=== PATIENT | female | born 1950 | race Caucasian/White ===

== ENCOUNTER 2016-12-25 18:15 | Inpatient (IN) | payer OTHER ==
[~2016-12-25] VITALS: Ht 154.9 cm; Wt 63.5 kg
[2016-12-25 18:47] LABS: KETONES,URINE Negative (NEGATIVE); LEUKOCYTE ESTERASE ,URINE Trace (NEGATIVE); PH,URINE 5.5 (5.0-8.0)
[2016-12-25 18:49] LABS: BASOPHILS # (AUTO) 0.1 /CMM (0.0-0.2); BASOPHILS % (AUTO) 0.7 % (0.0-2.0); DIFF TOTAL % 100 %; EOSINOPHILS % (AUTO) 0.1 % (0.0-6.0); HEMATOCRIT 46 % (33-45); HEMOGLOBIN 15.4 g/dL (11.5-14.8); LYMPHOCYTES # (AUTO) 2.5 /CMM (0.8-4.8); MEAN CORPUSCULAR HEMOGLOBIN 32 PG (26.0-33.0); MEAN CORPUSCULAR HGB CONC 34 g/dl (31.0-36.0); MEAN CORPUSCULAR VOLUME 95 fL (82-100); MONOCYTES # (AUTO) 0.4 /CMM (0.1-1.30); NEUTROPHILS # (AUTO) 5.1 /CMM (1.8-8.9); NEUTROPHILS % (AUTO) 63.2 % (43.0-81.0); PLATELET COUNT (AUTO) 326 /CMM (150-450); RED BLOOD CELL COUNT(AUTO) 4.82 MIL/uL (4.0-5.2); WHITE BLOOD COUNT (AUTO) 8.1 K/uL (4.3-11.0)
[2016-12-25 18:54] LABS: ADD UA MICROSCOPIC YES
[2016-12-25 18:56] LABS: ADD URINE CULTURE YES
[2016-12-25 18:58] LABS: ANION GAP 14 (5-14); CALCIUM, SERUM 9.3 mg/dL (8.5-10.1); CARBON DIOXIDE 27 mmol/L (21-32); CHLORIDE 106 mmol/L (98-107); CREATININE 1.2 mg/dL (0.6-1.3); GFR 45 mL/min (>60); GLUCOSE 119 mg/dL (74-106); POTASSIUM 3.5 mmol/L (3.5-5.1); SODIUM SERUM 143 mmol/L (136-145); UREA NITROGEN, BLOOD 11 mg/dL (7-18)
[2016-12-25 18:58] LABS: CANNABINOID, URINE NEGATIVE (NEGATIVE); PHENCYCLIDINE SCREEN,URINE NEGATIVE (NEGATIVE)
[2016-12-25] MEDS ORDERED: CEPHALEXIN MONOHYDRATE 500 MG CAPSULE PO ONE ×2 (19:00→19:01)
[2016-12-25 19:04] LABS: ALANINE AMINOTRANSFERASE 20 U/L (12-78); ALBUMIN 4.1 g/dL (3.4-5.0); ASPARTATE AMINOTRANSFERASE 19 U/L (15-37); BILIRUBIN,DIRECT 0.1 mg/dL (0.0-0.2); BILIRUBIN,TOTAL 0.4 mg/dL (0.2-1.0); INDIRECT BILIRUBIN 0.3 mg/dL (0.0-1.1); TOTAL PROTEIN, SERUM 8.6 g/dL (6.4-8.2)
[2016-12-25 19:05] LABS: ACETAMINOPHEN 0 ug/ml (10-30); SALICYLATE 1.3 mg/dL (2.8-20.0)
[2016-12-25 20:24] VITALS: BP 157/88
[2016-12-25] MEDS ORDERED: ACETAMINOPHEN 325 MG TABLET PO PRN (21:00)
[2016-12-25] MEDS ORDERED: TEMAZEPAM 7.5 MG CAPSULE PO PRN (21:00)
[2016-12-25] MEDS ORDERED: MAG HYDROX/AL HYDROX/SIMETH 30 ML UDC PO PRN (21:00)
[2016-12-25] MEDS ORDERED: VERA240C2 PO (23:14)
[2016-12-25] MEDS ORDERED: BUSP15TA3 PO (23:14)
[2016-12-25] MEDS ORDERED: METO25TA6 PO (23:14)
[2016-12-25] MEDS ORDERED: ASPI81TA2 PO (23:24)
[2016-12-25] MEDS ORDERED: ACET1TAB12 PO (23:24)
[2016-12-25] MEDS ORDERED: BUTA1CAP47 PO (23:24)
[2016-12-25] MEDS ORDERED: SUMA100T16 PO (23:24)
[2016-12-25] MEDS ORDERED: IBUP-1481 PO (23:24)
[2016-12-25] MEDS ORDERED: DIPH25CA58 PO (23:24)
[2016-12-26 08:00] VITALS: BP 174/96
[2016-12-26] MEDS ORDERED: Z GUARD REMEDY 2 OZ OINT TP PRN (14:00)
[2016-12-26 16:00] VITALS: BP 162/79
[2016-12-26] MEDS: VENLAFAXINE XR 75 MG CAP.SR.24H PO SCH (16:09)
[2016-12-26] MEDS ORDERED: IBUPROFEN 400 MG TABLET PO PRN (16:30)
[2016-12-26] MEDS ORDERED: hydrALAZINE HCL 25 MG TABLET PO SCH (16:30)
[2016-12-26] MEDS ORDERED: diphenhydrAMINE HCL 25 MG CAPSULE PO PRN (16:30)
[2016-12-26] MEDS ORDERED: ACETAMINOPHEN 325 MG TABLET PO PRN (17:00)
[2016-12-26] MEDS: busPIRone 5 MG TABLET PO SCH (17:04)
[2016-12-26] MEDS: METOPROLOL TARTRATE 25 MG TABLET PO SCH (17:05)
[2016-12-26 19:51] VITALS: BP 146/68
[2016-12-26] MEDS ORDERED: QUETIAPINE FUMARATE 25 MG TABLET PO SCH (22:00)
[2016-12-27 08:00] VITALS: BP 133/72
[2016-12-27] MEDS: busPIRone 5 MG TABLET PO SCH ×3 (08:18→16:42)
[2016-12-27] MEDS: VENLAFAXINE XR 75 MG CAP.SR.24H PO SCH (08:18)
[2016-12-27] MEDS: ASPIRIN 81 MG TAB.CHEW PO SCH (08:19)
[2016-12-27] MEDS: VERAPAMIL HCL 120 MG TABLET PO SCH (08:19)
[2016-12-27] MEDS: METOPROLOL TARTRATE 25 MG TABLET PO SCH ×2 (08:19→16:42)
[2016-12-27] MEDS: SUMATRIPTAN SUCCINATE 100 MG TABLET PO PRN (09:07)
[2016-12-27 16:05] VITALS: BP 128/72
[2016-12-27 20:21] VITALS: BP 117/60
[2016-12-27] MEDS ORDERED: MIRTAZAPINE 15 MG TABLET PO SCH (22:00)
[2016-12-28 08:00] VITALS: BP 104/69
[2016-12-28] MEDS: VENLAFAXINE XR 75 MG CAP.SR.24H PO SCH (08:28)
[2016-12-28] MEDS: ASPIRIN 81 MG TAB.CHEW PO SCH (08:28)
[2016-12-28] MEDS: busPIRone 5 MG TABLET PO SCH ×3 (08:29→16:50)
[2016-12-28] MEDS: METOPROLOL TARTRATE 25 MG TABLET PO SCH ×2 (08:29→16:50)
[2016-12-28] MEDS: VERAPAMIL HCL 120 MG TABLET PO SCH (08:36)
[2016-12-28 16:00] VITALS: BP 118/70
[2016-12-28 20:00] VITALS: BP 118/75
[2016-12-28] MEDS: SUMATRIPTAN SUCCINATE 100 MG TABLET PO PRN (21:53)
[2016-12-28] MEDS ORDERED: MIRTAZAPINE 15 MG TABLET PO SCH (22:00)
[2016-12-29 08:00] VITALS: BP 111/75
[2016-12-29] MEDS: ASPIRIN 81 MG TAB.CHEW PO SCH (08:32)
[2016-12-29] MEDS: VERAPAMIL HCL 120 MG TABLET PO SCH (08:32)
[2016-12-29] MEDS: busPIRone 5 MG TABLET PO SCH ×3 (08:32→17:52)
[2016-12-29] MEDS: VENLAFAXINE XR 75 MG CAP.SR.24H PO SCH (08:32)
[2016-12-29] MEDS: METOPROLOL TARTRATE 25 MG TABLET PO SCH ×2 (08:32→17:52)
[2016-12-29 16:00] VITALS: BP 139/74
[2016-12-29 20:00] VITALS: BP 116/70
[2016-12-29] MEDS: MIRTAZAPINE 15 MG TABLET PO SCH (21:07)
[2016-12-29] MEDS: SULFAMETH/TRIMETH 800/160 MG 1 UDTAB TABLET PO SCH (21:07)
[2016-12-30 08:00] VITALS: BP 104/62
[2016-12-30] MEDS: VENLAFAXINE XR 75 MG CAP.SR.24H PO SCH (08:30)
[2016-12-30] MEDS: ASPIRIN 81 MG TAB.CHEW PO SCH (08:30)
[2016-12-30] MEDS: busPIRone 5 MG TABLET PO SCH ×3 (08:30→16:59)
[2016-12-30] MEDS: SULFAMETH/TRIMETH 800/160 MG 1 UDTAB TABLET PO SCH ×2 (08:30→20:15)
[2016-12-30] MEDS: VERAPAMIL HCL 120 MG TABLET PO SCH (08:31)
[2016-12-30] MEDS: METOPROLOL TARTRATE 25 MG TABLET PO SCH ×2 (08:31→16:59)
[2016-12-30 16:00] VITALS: BP 113/61
[2016-12-30 20:00] VITALS: BP 114/60
[2016-12-30] MEDS: MIRTAZAPINE 15 MG TABLET PO SCH (21:16)
[2016-12-31 08:14] VITALS: BP 112/66
[2016-12-31] MEDS: VENLAFAXINE XR 75 MG CAP.SR.24H PO SCH (09:15)
[2016-12-31] MEDS: SULFAMETH/TRIMETH 800/160 MG 1 UDTAB TABLET PO SCH ×2 (09:15→20:28)
[2016-12-31] MEDS: busPIRone 5 MG TABLET PO SCH ×3 (09:15→17:12)
[2016-12-31] MEDS: ASPIRIN 81 MG TAB.CHEW PO SCH (09:17)
[2016-12-31] MEDS: METOPROLOL TARTRATE 25 MG TABLET PO SCH ×2 (09:18→17:13)
[2016-12-31] MEDS: VERAPAMIL HCL 120 MG TABLET PO SCH (09:30)
[2016-12-31 16:02] VITALS: BP 111/61
[2016-12-31] MEDS: MAGNESIUM HYDROXIDE 30 ML UDC PO PRN (17:12)
[2016-12-31] MEDS: clonazePAM 0.5 MG TABLET PO PRN (17:17)
[2016-12-31 19:53] VITALS: BP 151/81
[2016-12-31] MEDS: MIRTAZAPINE 15 MG TABLET PO SCH (21:17)
[2017-01-01 08:00] VITALS: BP 106/60
[2017-01-01] MEDS: VENLAFAXINE XR 75 MG CAP.SR.24H PO SCH (08:53)
[2017-01-01] MEDS: SULFAMETH/TRIMETH 800/160 MG 1 UDTAB TABLET PO SCH ×2 (08:53→21:41)
[2017-01-01] MEDS: busPIRone 5 MG TABLET PO SCH ×3 (08:54→18:07)
[2017-01-01] MEDS: ASPIRIN 81 MG TAB.CHEW PO SCH (08:54)
[2017-01-01] MEDS: METOPROLOL TARTRATE 25 MG TABLET PO SCH ×2 (08:54→18:08)
[2017-01-01] MEDS: VERAPAMIL HCL 120 MG TABLET PO SCH (08:55)
[2017-01-01] MEDS: clonazePAM 0.5 MG TABLET PO PRN ×2 (12:10→18:19)
[2017-01-01 16:00] VITALS: BP 124/69
[2017-01-01] MEDS: MAGNESIUM HYDROXIDE 30 ML UDC PO PRN (19:36)
[2017-01-01 19:51] VITALS: BP 126/74
[2017-01-01] MEDS: MIRTAZAPINE 15 MG TABLET PO SCH (21:46)
[2017-01-02 08:07] VITALS: BP 132/75
[2017-01-02] MEDS: busPIRone 5 MG TABLET PO SCH ×2 (08:46→13:50)
[2017-01-02] MEDS: ASPIRIN 81 MG TAB.CHEW PO SCH (08:47)
[2017-01-02] MEDS: VENLAFAXINE XR 75 MG CAP.SR.24H PO SCH (08:47)
[2017-01-02] MEDS: SULFAMETH/TRIMETH 800/160 MG 1 UDTAB TABLET PO SCH (08:47)
[2017-01-02 08:48] VITALS: BP 132/75
[2017-01-02] MEDS: VERAPAMIL HCL 120 MG TABLET PO SCH (08:48)
[2017-01-02] MEDS: METOPROLOL TARTRATE 25 MG TABLET PO SCH (08:48)
[2017-01-02] MEDS: clonazePAM 0.5 MG TABLET PO PRN (11:18)
== END 2017-01-02 15:03 | disposition home or self-care (01) | DRG 885 ==
LOC: ER 18:17 → GPS 19:42
PROVIDERS: ADMIT Psychiatry & Neurology Psychiatry; ATTEND Internal Medicine
DX: F33.2 Major depressive disorder, recurrent severe without psychotic features (principal); N39.0 Urinary tract infection, site not specified; E78.5 Hyperlipidemia, unspecified; G43.909 Migraine, unspecified, not intractable, without status migrainosus; I10 Essential (primary) hypertension; G47.00 Insomnia, unspecified; K21.9 Gastro-esophageal reflux disease without esophagitis
CPT/HCPCS: 36415; 80048-TC; 80061-TC; 80076-TC; 80305; 81000-TC; 82565-TC; 85025-TC; 87081-TC; 87086-TC; A4606; G0480; G6039-TC; Z7610